=== PATIENT | female | born 1970 | race African-American/Black ===

== ENCOUNTER 2016-12-27 03:12 | Emergency (ER) | payer OTHER ==
[~2016-12-27] VITALS: Ht 167.6 cm; Wt 124.0 kg
[~2016-12-27 03:12] MED LIST: DIOV40TA PO; GUAI100S6 PO; KCL10C PO; ZITH250T PO
[2016-12-27 03:22] VITALS: BP 107/71; PULSE 75; RESP 14; TEMP 98.2; O2SAT 97
--- NOTE | 2016-12-27 04:01 | RADHPO ---
EXAM DATE/TIME: 12/27/2016 03:45 [place] COMPARISON: No previous studies available for comparison. INDICATIONS : Entire left knee pain. Patient felt "pop" after standing up. MEDICAL HISTORY : Arthritis. SURGICAL HISTORY : None. ENCOUNTER: Initial ACUITY: 1 day PAIN SCORE: 10/10 LOCATION: Left knee FINDINGS: Four view examination of the left knee demonstrates no evidence of fracture or dislocation. There is primary degenerative changes involving the knee joint with narrowing of the lateral joint compartment . No significant joint effusion. Soft tissues are unremarkable.. CONCLUSION: Primary degenerative changes with narrowing of the lateral joint compartment. Abiel Cornell MD on December 27, 2016 at 3:59 Board Certified Radiologist. This report was verified electronically.
[2016-12-27] MEDS ORDERED: CELE100C PO (04:23)
[2016-12-27] MEDS ORDERED: IBUPROFEN 800 MG TAB PO ONE (04:45)
--- NOTE | 2016-12-27 04:50 | PD ---
HPI Chief Complaint: Pain: Acute or Chronic Time Seen by Provider: 04:43 Travel History International Travel<30 days: No Contact w/Intl Traveler<30days: No Traveled to known affect area: No History of Present Illness HPI 46-year-old female presents to the emergency department for complaint of left knee pain. 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 Patient states she has bilaterally bad knees and has been followed by Dr. Bernard. Patient does not report any new lower leg or pedal edema. No calf pain. Pain is confined to the medial aspect of the left knee and posterior aspect of the left knee. Patient has had an MRI of the left knee and has marked degenerative changes no history of Gage cyst. No sending erythema. Patient was able to walk with a limping gait on the left leg yesterday. Patient took ibuprofen at 7 PM. Patient's had no medication for pain subsequently. Patient does not want any narcotic medication. Patient denies other injury or concern. No report of chest pain pleuritic pain or shortness of breath. Patient does not take any hormone replacement therapy. Patient does not smoke cigarettes. Patient is not diabetic. Patient rates pain 9/10 in intensity. PFSH Past Medical History Narrative Medical Arthritis tubal ligation no tobacco use; I see notes reviewed Diminished Hearing: No Hypertension: Yes Immunizations Current: Yes Tetanus Vaccination: > 5 Years Influenza Vaccination: Yes ?: Not Tubal Ligation: Yes Past Surgical History Cholecystectomy: Yes Gynecologic Surgery: Yes (UTERINE ABLATION) Social History Alcohol Use: No Tobacco Use: No Substance Use: No Allergies-Medications (Allergen,Severity, Reaction): Coded Allergies: Compazine (Verified Allergy, Severe, HALLUCINATIONS, 12/27/16) Darvocet-N 100 (Verified Allergy, Severe, NAUSEA, 12/27/16) Inapsine (Verified Allergy, Severe, HALLUCINATIONS, 12/27/16) Penicillin (Verified Allergy, Severe, RASH, 12/27/16) Phenergan (Verified Allergy, Severe, HALLUCINATIONS, 12/27/16) Valium (Verified Allergy, Severe, COMBATIVE, 12/27/16) Reported Meds & Prescriptions Reported Meds & Active Scripts Active Reported Celebrex (Celecoxib) 100 Mg Cap 100 Mg PO BID Diovan (Valsartan) 40 Mg Tab 25 Mg PO DAILY Review of Systems Except as stated in HPI: all other systems reviewed are Neg General / Constitutional: No: Fever, Chills HENT: No: Congestion Cardiovascular: No: Chest Pain or Discomfort Respiratory: No: Shortness of Breath Gastrointestinal: No: Abdominal Pain Genitourinary: No: Flank Pain Musculoskeletal: Positive: Myalgias, Arthralgias, Limited ROM (left knee), Pain , No: Edema Skin: No Rash Neurologic: No: Weakness (left knee) Psychiatric: No: Anxiety Hematologic/Lymphatic: No: Lymph Node Enlargement Physical Exam Narrative GENERAL: Well-developed well-nourished female in no acute distress no respiratory distress SKIN: Warm and dry. HEAD: Normocephalic. EYES: No scleral icterus. No injection or drainage. NECK: Supple, trachea midline. No JVD or lymphadenopathy. CARDIOVASCULAR: Regular rate and rhythm without murmurs, gallops, or rubs. RESPIRATORY: Breath sounds equal bilaterally. No accessory muscle use. GASTROINTESTINAL: Abdomen soft, non-tender, nondistended. MUSCULOSKELETAL: No cyanosis, or edema. Tenderness to palpation along the medial and posterior aspect of the left knee with no ballotable effusion; no ecchymosis no increased warmth no induration no erythema patient is able to perform them attempted knee flexion and incomplete extension secondary to medial inferior knee pain and posterior knee pain no calf pain swelling no ankle pain or pedal edema. No erythema no increased warmth no pallor or coolness of the limb. Dorsalis pedis pulse 2+ to palpation. BACK: Nontender without obvious deformity. No CVA tenderness. Data Data Last Documented VS Vital Signs Date Time Temp Pulse Resp B/P Pulse Ox O2 Delivery O2 Flow Rate FiO2 12/27/16 05:06 78 18 98 12/27/16 05:05 112/74 Room Air 12/27/16 03:22 98.2 Orders Knee, Complete (4vws) (12/27/16 ) ^ Knee Immobilizer (12/27/16 04:41) Splint Or Brace Apply/Monitor (12/27/16 04:41) Ibuprofen (Motrin) (12/27/16 04:45) Immobilizer Knee 20 Inch (12/27/16 ) MDM Medical Decision Making Medical Screen Exam Complete: Yes Emergency Medical Condition: Yes Medical Record Reviewed: Yes Interpretation(s) Last Impressions Knee X-Ray 12/27/16 0000 Signed Impressions: Service Date/Time: Tuesday, December 27, 2016 03:45 - CONCLUSION: Primary degenerative changes with narrowing of the lateral joint compartment. 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
[2016-12-27 05:05] VITALS: BP 112/74; PULSE 72; RESP 18; O2SAT 98
== END 2016-12-27 05:16 | disposition home or self-care (01) ==
LOC: PHED 03:12
DX: S89.92XA Unspecified injury of left lower leg, initial encounter (principal); I10 Essential (primary) hypertension; X50.9XXA Other and unspecified overexertion or strenuous movements or postures, initial encounter; Y93.89 Activity, other specified; Y92.149 Unspecified place in prison as the place of occurrence of the external cause; Y99.0 Civilian activity done for income or pay
CPT/HCPCS: 73564; 99283; L1830

== ENCOUNTER 2017-05-01 16:11 | Emergency (ER) | payer OTHER ==
[~2017-05-01] VITALS: Ht 167.6 cm; Wt 120.0 kg
[~2017-05-01 16:11] MED LIST changes: +CELE100C PO; -GUAI100S6 PO; -KCL10C PO; -ZITH250T PO
[2017-05-01 16:26] VITALS: BP 181/87; PULSE 93; RESP 21; TEMP 99.9; O2SAT 100
[2017-05-01] MEDS ORDERED: ONDANSETRON ODT 4 MG TAB PO ONE (16:30)
[2017-05-01] MEDS ORDERED: ZOFR4TAB3 SL (16:45)
--- NOTE | 2017-05-01 16:45 | PD ---
HPI Chief Complaint: GI Complaint Time Seen by Provider: 16:27 Travel History International Travel<30 days: No Contact w/Intl Traveler<30days: No Traveled to known affect area: No History of Present Illness HPI 46-year-old female complaining of nausea vomiting. Patient states that she is not having nausea vomiting since this morning. Patient denies any headache. Patient denies any visual change. Patient denies any neck pain. Patient denies any chest pain or shortness of breath. Patient denies abdominal pain. Patient denies any focal weakness or numbness of extremity. Patient has history hypertension and has been taking medications as directed. Patient states that her blood pressure has been elevated today. EMS was called. Patient was given Zofran 4 mg IM with relief of the nausea. PFSH Past Medical History Diminished Hearing: No Hypertension: Yes Immunizations Current: Yes ?: Not : 3 Para: 2 Tubal Ligation: Yes Past Surgical History Cholecystectomy: Yes Gynecologic Surgery: Yes (UTERINE ABLATION) Social History Alcohol Use: No Tobacco Use: No Substance Use: No Allergies-Medications (Allergen,Severity, Reaction): Coded Allergies: acetaminophen (Unverified Allergy, Severe, NAUSEA, 03/31/17) diazepam (Unverified Allergy, Severe, COMBATIVE, 03/31/17) droperidol (Unverified Allergy, Severe, HALLUCINATIONS, 03/31/17) penicillin G (Unverified Allergy, Severe, RASH, 03/31/17) prochlorperazine (Unverified Allergy, Severe, HALLUCINATIONS, 03/31/17) promethazine (Unverified Allergy, Severe, HALLUCINATIONS, 03/31/17) propoxyphene (Unverified Allergy, Severe, NAUSEA, 03/31/17) Reported Meds & Prescriptions Reported Meds & Active Scripts Active Reported Celebrex (Celecoxib) 100 Mg Cap 100 Mg PO BID Diovan (Valsartan) 40 Mg Tab 25 Mg PO DAILY Review of Systems General / Constitutional: No: Fever Eyes: No: Visual changes HENT: No: Headaches Cardiovascular: No: Chest Pain or Discomfort Respiratory: No: Shortness of Breath Gastrointestinal: Positive: Nausea, Vomiting, No: Abdominal Pain Genitourinary: No: Dysuria Musculoskeletal: No: Pain Skin: No Rash Neurologic: No: Weakness Psychiatric: No: Depression Endocrine: No: Polydipsia Hematologic/Lymphatic: No: Easy Bruising Physical Exam Narrative GENERAL: Well-nourished, well-developed patient. SKIN: Focused skin assessment warm/dry. HEAD: Normocephalic. EYES: No scleral icterus. No injection or drainage. Pupils 3 mm equal reactive. NECK: Supple, trachea midline. No JVD or lymphadenopathy. CARDIOVASCULAR: Regular rate and rhythm without murmurs, gallops, or rubs. RESPIRATORY: Breath sounds equal bilaterally. No accessory muscle use. GASTROINTESTINAL: Abdomen soft, non-tender, nondistended. MUSCULOSKELETAL: No cyanosis, or edema. BACK: Nontender without obvious deformity. No CVA tenderness. Neurologic exam normal. Data Data Last Documented VS Vital Signs Date Time Temp Pulse Resp B/P (MAP) Pulse Ox O2 Delivery O2 Flow Rate FiO2 05/01/17 16:26 99.9 93 21 181/87 (118) 100 Orders Orders Ondansetron Odt (Zofran Odt) (05/01/17 16:30) [facility] Medical Decision Making Medical Screen Exam Complete: Yes Emergency Medical Condition: Yes Differential Diagnosis Differential diagnosis including gastroenteritis, gastritis, PUD, pancreatitis, cholecystitis, dehydration, uncontrolled hypertension. Narrative Course 46-year-old female with nausea vomiting and history hypertension. Her blood pressure has been elevated today. Patient was given Zofran IM with good relief of the nausea vomiting. Zofran 4 mg ODT in the ED. Blood pressure under control in the ED. Diagnosis Primary Impression: Gastroenteritis Additional Impression: Uncontrolled hypertension Patient Instructions: General Instructions Med/Other Pt SpecificInfo: Prescription(s) given Scripts Ondansetron Odt (Zofran Odt) 4 Mg Tab 4 MG SL Q6HR Y for Nausea/Vomiting, #10 TAB 0 Refills Prov: Demarcus Draper MD 05/01/17 Disposition: 01 DISCHARGE HOME Condition: Stable Demarcus Draper MD May 01, 2017 16:45
[2017-05-01] MEDS ORDERED: SODIUM CHLOR 0.9% 1000 ML INJ 1,000 ML IV ONE ×2 (17:30→18:15)
[2017-05-01] MEDS ORDERED: DICYCLOMINE HCL 10 MG CAP PO ONE (18:15)
[2017-05-01] MEDS ORDERED: ONDANSETRON HCL 4 MG/2 ML VIAL IVP ONE (18:15)
--- NOTE | 2017-05-01 18:16 | PD ---
Physical Exam Date Seen by Provider: May 01, 2017 Data Data Last Documented VS Vital Signs Date Time Temp Pulse Resp B/P (MAP) Pulse Ox O2 Delivery O2 Flow Rate FiO2 05/01/17 16:26 99.9 93 21 181/87 (118) 100 Orders Orders Ondansetron Odt (Zofran Odt) (05/01/17 16:30) Complete Blood Count With Diff (05/01/17 17:22) Comprehensive Metabolic Panel (05/01/17 17:22) Lipase (05/01/17 17:22) Iv Access Insert/Monitor (05/01/17 17:22) Ecg Monitoring (05/01/17 17:22) Oximetry (05/01/17 17:22) Sodium Chlor 0.9% 1000 Ml Inj (Ns 1000 M (05/01/17 17:30) Ed Urine Pregnancytest Poc (05/01/17 18:12) Ondansetron Inj (Zofran Inj) (05/01/17 18:15) Dicyclomine (Bentyl) (05/01/17 18:15) Sodium Chlor 0.9% 1000 Ml Inj (Ns 1000 M (05/01/17 18:15) Labs Laboratory Tests Test 05/01/17 17:45 White Blood Count 9.3 TH/MM3 Red Blood Count 4.62 MIL/MM3 Hemoglobin 12.8 GM/DL Hematocrit 39.0 % Mean Corpuscular Volume 84.4 FL Mean Corpuscular Hemoglobin 27.7 PG Mean Corpuscular Hemoglobin Concent 32.9 % Red Cell Distribution Width 13.0 % Platelet Count 270 TH/MM3 Mean Platelet Volume 8.7 FL Neutrophils (%) (Auto) 82.3 % Lymphocytes (%) (Auto) 11.4 % Monocytes (%) (Auto) 5.8 % Eosinophils (%) (Auto) 0.2 % Basophils (%) (Auto) 0.3 % Neutrophils # (Auto) 7.7 TH/MM3 Lymphocytes # (Auto) 1.1 TH/MM3 Monocytes # (Auto) 0.5 TH/MM3 Eosinophils # (Auto) 0.0 TH/MM3 Basophils # (Auto) 0.0 TH/MM3 CBC Comment DIFF FINAL Differential Comment Blood Urea Nitrogen 14 MG/DL Creatinine 1.09 MG/DL Random Glucose 85 MG/DL Total Protein 7.5 GM/DL Albumin 3.6 GM/DL Calcium Level 8.5 MG/DL Alkaline Phosphatase 85 U/L Aspartate Amino Transf (AST/SGOT) 15 U/L Alanine Aminotransferase (ALT/SGPT) 15 U/L Total Bilirubin 0.3 MG/DL Sodium Level 136 MEQ/L Potassium Level 3.5 MEQ/L Chloride Level 101 MEQ/L Carbon Dioxide Level 27.7 MEQ/L Anion Gap 7 MEQ/L Estimat Glomerular Filtration Rate 66 ML/MIN Lipase 58 U/L [facility] Medical Record Reviewed: Yes Supervised Visit with NEFTALI: No Interpretation(s) Vital Signs Date Time Temp Pulse Resp B/P (MAP) Pulse Ox O2 Delivery O2 Flow Rate FiO2 05/01/17 16:26 99.9 93 21 181/87 (118) 100 Differential Diagnosis Differential includes gastritis, gastric enteritis, electrolyte abnormality Narrative Course Patient signed out to me by Dr. Draper at change of shift Patient is a 46-year-old female who presents to emergency room with complaints of nausea and vomiting which started this morning. She reports no sick contacts at home, she does work at the [employer] Reports no abdominal pain , no fevers or chills. Patient reports that she just feels nauseous and has not been able to keep any fluids down today. Patient denies any chest pain or shortness of breath, she denies any recent travels or trips. Patient received 4 mg of IM Zofran by EMS prior to arrival to the emergency room. She still feels nauseous at this time. Labwork pending, IV Zofran as well as IV fluids ordered. Abdomen is soft, nontender, nondistended, no peritoneal sign. 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 CBC & BMP Diagram 05/01/17 17:45 Total Protein 7.5, Albumin 3.6, Calcium Level 8.5, Alkaline Phosphatase 85, Aspartate Amino Transf (AST/SGOT) 15, Alanine Aminotransferase (ALT/SGPT) 15, Total Bilirubin 0.3 Patient reevaluated, patient feeling much better at this time. Please reports complete resolution of symptoms. I reviewed all labs and all studies with patient in detail. Signs and symptoms of when to return to the emergency room was reviewed patient in detail. She'll follow-up with her primary care doctor and will return to emergency room as needed. Diagnosis Primary Impression: Gastroenteritis Additional Impressions: Uncontrolled hypertension Dehydration Patient Instructions: General Instructions Additional Instruction: Please give a copy of patient's studies from today at discharge Please have your primary care doctor repeat your blood work Returns to emergency room as needed Return to the emergency room if symptoms worsen or progress Med/Other Pt SpecificInfo: Prescription(s) given Scripts Ondansetron (Zofran) 4 Mg Tab 4 MG PO Q6HR Y for NAUSEA OR VOMITING, #30 TAB 0 Refills Prov: Charisse Ibarhim DO 05/01/17 Disposition: 01 DISCHARGE HOME Condition: Stable Charisse Ibrahim DO May 01, 2017 18:16
[2017-05-01 18:43] LABS: AUTOMATED NEUTROPHIL # 7.7 TH/MM3 (1.8-7.7); BASOPHIL % 0.3 % (0.0-2.0); EOSINOPHIL % 0.2 % (0.0-4.0); HEMO FLAGS DIFF FINAL; LYMPH % 11.4 % (9.0-44.0); LYMPHOCYTE # 1.1 TH/MM3 (1.0-4.8); MEAN CELL VOLUME 84.4 FL (80.0-100.0); MEAN CORPUSCULAR HEMOGLOBIN 27.7 PG (27.0-34.0); MEAN CORPUSCULAR HGB CONC 32.9 % (32.0-36.0); MONO % 5.8 % (0.0-8.0); NEUT % 82.3 % (16.0-70.0); PLATELET COUNT 270 TH/MM3 (150-450); RED BLOOD COUNT 4.62 MIL/MM3 (4.00-5.30); WHITE BLOOD COUNT 9.3 TH/MM3 (4.0-11.0)
[2017-05-01 18:55] LABS: ANION GAP 7 MEQ/L (5-15); AST (GOT) 15 U/L (15-37); BICARBONATE 27.7 MEQ/L (21.0-32.0); BLOOD UREA NITROGEN 14 MG/DL (7-18); CHLORIDE 101 MEQ/L (98-107); GLOMERULAR FILTRATION RATE 66 ML/MIN (>89); POTASSIUM 3.5 MEQ/L (3.5-5.1); SODIUM (NA) 136 MEQ/L (136-145)
[2017-05-01 18:57] LABS: ALT (GPT) 15 U/L (10-53)
[2017-05-01 18:58] LABS: ALKALINE PHOSPHATASE 85 U/L (45-117); TOTAL BILIRUBIN ADULT 0.3 MG/DL (0.2-1.0)
[2017-05-01] MEDS ORDERED: ZOFR4TAB PO (19:39)
[2017-05-01 19:58] VITALS: BP 149/71; PULSE 92; RESP 16; TEMP 100; O2SAT 97
[2017-05-01] MEDS ORDERED: IBUPROFEN 600 MG TAB PO ONE (20:15)
== END 2017-05-01 21:57 | disposition home or self-care (01) ==
LOC: NEPD 16:11
DX: K52.9 Noninfective gastroenteritis and colitis, unspecified (principal); I10 Essential (primary) hypertension; E86.0 Dehydration
CPT/HCPCS: 80053; 83690; 85025; 96361; 96374; 99284; J2405; J7030

== ENCOUNTER 2017-11-26 20:37 | Emergency (ER) | payer OTHER ==
[2017-11-27] MEDS ORDERED: POTA8CAP PO (13:37)
[2017-11-27] MEDS ORDERED: VERA40TA PO (13:37)
[2017-11-27] MEDS ORDERED: CELE50CA PO (13:37)
[2017-11-27] MEDS ORDERED: DIOV40TA PO (13:37)
[2017-11-27] MEDS ORDERED: KETO10 PO (14:12)
[2017-11-27] MEDS ORDERED: ROBA750T PO (14:12)
== END 2017-11-26 21:10 | disposition left against medical advice (07) ==
LOC: PHED 20:37
DX: Z53.21 Procedure and treatment not carried out due to patient leaving prior to being seen by health care provider (principal); R10.9 Unspecified abdominal pain
CPT/HCPCS: 99281

== ENCOUNTER 2017-11-27 13:21 | Emergency (ER) | payer OTHER ==
[~2017-11-27] VITALS: Ht 167.6 cm; Wt 120.7 kg
[2017-11-27 13:23] VITALS: BP 179/89; PULSE 77; RESP 18; TEMP 98.6; O2SAT 97
[2017-11-27] MEDS ORDERED: VERA40TA PO (13:37)
[2017-11-27] MEDS ORDERED: POTA8CAP PO (13:37)
[2017-11-27] MEDS ORDERED: CELE50CA PO (13:37)
[2017-11-27] MEDS ORDERED: DIOV40TA PO (13:37)
[2017-11-27] MEDS ORDERED: KETOROLAC TROMETHAMINE 60 MG/2 ML (IM) VIAL IM ONE (13:45)
--- NOTE | 2017-11-27 13:45 | PD ---
HPI Chief Complaint: Back/ Neck Pain or Injury Time Seen by Provider: 13:36 Travel History International Travel<30 days: No Contact w/Intl Traveler<30days: No Traveled to known affect area: No History of Present Illness HPI 47-year-old female with right low back pain 3 days. Cannot recall specific injury. Pain is localized to the right low back and nonradiating. No fevers or chills. No urinary frequency, dysuria, urgency. No paresthesia or weakness of the extremities. Symptom severity is moderate. Aggravated by movement and slightly relieved with rest. PFSH Past Medical History Arthritis: Yes Diminished Hearing: No Hypertension: Yes Immunizations Current: Yes Influenza Vaccination: No ?: Not LMP: LAST MONTH : 3 Para: 2 Tubal Ligation: Yes Past Surgical History Cholecystectomy: Yes Gynecologic Surgery: Yes (UTERINE ABLATION) Social History Alcohol Use: No Tobacco Use: No Substance Use: No Allergies-Medications (Allergen,Severity, Reaction): Coded Allergies: acetaminophen (Unverified Allergy, Severe, NAUSEA, 11/27/17) diazepam (Unverified Allergy, Severe, COMBATIVE, 11/27/17) droperidol (Unverified Allergy, Severe, HALLUCINATIONS, 11/27/17) penicillin G (Unverified Allergy, Severe, RASH, 11/27/17) prochlorperazine (Unverified Allergy, Severe, HALLUCINATIONS, 11/27/17) promethazine (Unverified Allergy, Severe, HALLUCINATIONS, 11/27/17) propoxyphene (Unverified Allergy, Severe, NAUSEA, 11/27/17) Reported Meds & Prescriptions Reported Meds & Active Scripts Active Robaxin (Methocarbamol) 750 Mg Tab 750 Mg PO QID Ketorolac (Ketorolac Tromethamine) 10 Mg Tab 10 Mg PO Q6HR PRN 5 Days Reported Celebrex (Celecoxib) 50 Mg Cap 50 Mg PO BID Potassium Chloride ER (Potassium Chloride) 8 Meq Cap 8 Meq PO BID Diovan (Valsartan) 40 Mg Tab 20 Mg PO BID Verapamil (Verapamil HCl) 40 Mg Tab 40 Mg PO BID Review of Systems Except as stated in HPI: all other systems reviewed are Neg General / Constitutional: No: Fever Eyes: No: Visual changes HENT: No: Headaches Cardiovascular: No: Chest Pain or Discomfort Respiratory: No: Shortness of Breath Gastrointestinal: No: Abdominal Pain Genitourinary: No: Dysuria Physical Exam Narrative GENERAL: Alert and well-appearing 47-year-old female. SKIN: Warm and dry. HEAD: Atraumatic. Normocephalic. EYES: No injection or drainage. NECK: Supple CARDIOVASCULAR: Regular rate and rhythm. RESPIRATORY: No accessory muscle use. Clear to auscultation. Breath sounds equal bilaterally. GASTROINTESTINAL: Abdomen soft, non-tender, nondistended. MUSCULOSKELETAL: Extremities without clubbing, cyanosis, or edema. No obvious deformities. BACK: No rash. No point tenderness on palpation of the spine. Mild +TTP right lumbar paravertebral musculature and right flank region. NEUROLOGICAL: Awake and alert. Motor grossly within normal limits. Five out of 5 muscle strength in the arms and legs. Normal sensation in extremities. PSYCHIATRIC: Appropriate mood and affect; insight and judgment normal. Data Data Last Documented VS Vital Signs Date Time Temp Pulse Resp B/P (MAP) Pulse Ox O2 Delivery O2 Flow Rate FiO2 11/27/17 13:23 98.6 77 18 179/89 (119) 97 Orders Orders Urinalysis - C+S If Indicated (11/27/17 13:40) Ketorolac Inj (Toradol Inj) (11/27/17 13:45) Ed Discharge Order (11/27/17 14:14) Labs Laboratory Tests Test 11/27/17 13:50 Urine Collection Type CLEAN CATCH Urine Color YELLOW Urine Turbidity SL CLOUDY Urine pH 6.0 Urine Specific [place] 1.025 Urine Protein TRACE mg/dL Urine Glucose (UA) NEG mg/dL Urine Ketones TRACE mg/dL Urine Occult Blood NEG Urine Nitrite NEG Urine Bilirubin NEG Urine Urobilinogen 0.2 MG/DL Urine Leukocyte Esterase NEG Urine WBC 0-2 /hpf Urine Squamous Epithelial Cells > 8 /hpf Urine Amorphous Sediment MOD Urine Bacteria FEW /hpf Microscopic Urinalysis Comment CULT NOT INDICATED Urine Collection Time 1350 MDM Medical Decision Making Medical Screen Exam Complete: Yes Emergency Medical Condition: Yes Differential Diagnosis Lumbar strain, pyelonephritis, nephrolithiasis Narrative Course 47-year-old female here with right low back pain 3 days. She has a normal neurologic exam. No complaints of urinary difficulty. UA no WBCs or RBCs to indicate infection or kidney stone. Patient reports symptom improvement after Toradol. Diagnosis Primary Impression: Lumbar strain Qualified Codes: S39.012A - Strain of muscle, fascia and tendon of lower back , initial encounter Referrals: Primary Care Physician Departure Forms: Tests/Procedures, Work Release Enter return to work date: Nov 30, 2017 Additional Instructions: Medication as directed. Follow-up the primary doctor. Return if he develop new or worsening symptoms. Scripts Methocarbamol (Robaxin) 750 Mg Tab 750 MG PO QID for Muscle Spasm, #12 TAB 0 Refills Prov: Sunni Schwartz 11/27/17 Ketorolac (Ketorolac) 10 Mg Tab 10 MG PO Q6HR Y for PAIN for 5 Days, TAB 0 Refills Prov: Sunni Schwartz 11/27/17 Disposition: 01 DISCHARGE HOME Condition: Stable Sunni Schwartz Nov 27, 2017 13:45
[2017-11-27 14:01] LABS: BILIRUBIN, URINE NEG (NEG); BLOOD, URINE NEG (NEG); GLUCOSE,URINE NEG (NEG); KETONE, URINE TRACE mg/dL (NEG); NITRITE,URINE NEG (NEG); URINE COLOR YELLOW (YELLW/STRAW); URINE LEUKOCYTE ESTERASE NEG (NEG)
[2017-11-27 14:05] LABS: BACTERIA, URINE FEW /hpf; WBC, URINE 0-2 /hpf (0-5)
[2017-11-27 14:06] LABS: AMORPHOUS SEDIMENT, URINE MOD; SQUAMOUS EPITHELIAL CELL URINE > 8 /hpf (0-5)
[2017-11-27] MEDS ORDERED: ROBA750T PO (14:12)
[2017-11-27] MEDS ORDERED: KETO10 PO (14:12)
== END 2017-11-27 14:27 | disposition home or self-care (01) ==
LOC: PHEFT 13:21
DX: S39.012A Strain of muscle, fascia and tendon of lower back, initial encounter (principal); I10 Essential (primary) hypertension; M19.90 Unspecified osteoarthritis, unspecified site; Z88.0 Allergy status to penicillin; Z88.8 Allergy status to other drugs, medicaments and biological substances; Z79.899 Other long term (current) drug therapy
CPT/HCPCS: 81001; 96372; 99283; J1885

== ENCOUNTER 2018-02-01 11:12 | Day surgery (SDC) | payer OTHER ==
[~2018-02-01] VITALS: Ht 167.6 cm; Wt 120.0 kg
[~2018-02-01 11:12] MED LIST changes: -CELE100C PO; +CELE50CA PO; +KETO10 PO; +POTA8CAP PO; +ROBA750T PO; +VERA40TA PO
[2018-02-01] MEDS ORDERED: IOHEXOL 350 MG/ML 100 ML BTL (for Cath Lab) OTHER ONE (11:13)
[2018-02-01] MEDS ORDERED: IOHEXOL 350 MG/ML 50 ML BTL (for Cath Lab) OTHER ONE (11:13)
[2018-02-01] MEDS ORDERED: NS 1000P @30 MLS/HR (KVO) IV SCH (11:45)
[2018-02-01 12:06] VITALS: BP 145/76; PULSE 57; RESP 18; TEMP 97.8; O2SAT 99
[2018-02-01] MEDS ORDERED: CHLOR50 PO (12:16)
[2018-02-01] MEDS ORDERED: SUVO1TAB2 PO (12:16)
[2018-02-01] MEDS ORDERED: METO25TA3 PO (12:16)
[2018-02-01 12:25] LABS: AUTOMATED NEUTROPHIL # 5.4 TH/MM3 (1.8-7.7); BASOPHIL # 0.1 TH/MM3 (0-0.2); BASOPHIL % 0.6 % (0.0-2.0); EOSINOPHIL # 0.3 TH/MM3 (0-0.4); HEMATOCRIT 37.6 % (35.0-46.0); HEMOGLOBIN 12.4 GM/DL (11.6-15.3); LYMPH % 26.7 % (9.0-44.0); LYMPHOCYTE # 2.3 TH/MM3 (1.0-4.8); MEAN CELL VOLUME 83.2 FL (80.0-100.0); MEAN CORPUSCULAR HEMOGLOBIN 27.4 PG (27.0-34.0); MEAN CORPUSCULAR HGB CONC 32.9 % (32.0-36.0); MEAN PLATELET VOLUME 8.5 FL (7.0-11.0); MONO % 6.8 % (0.0-8.0); MONOCYTE # 0.6 TH/MM3 (0-0.9); NEUT % 62.9 % (16.0-70.0); PLATELET COUNT 281 TH/MM3 (150-450); RED BLOOD COUNT 4.52 MIL/MM3 (4.00-5.30); WHITE BLOOD COUNT 8.6 TH/MM3 (4.0-11.0)
[2018-02-01 12:38] LABS: PROTHROMBIN TIME - PATIENT 10.3 SEC (9.8-11.6)
[2018-02-01 12:40] LABS: BICARBONATE 26.4 MEQ/L (21.0-32.0); CALCIUM 8.5 MG/DL (8.5-10.1); CREATININE 0.87 MG/DL (0.50-1.00)
[2018-02-01] MEDS ORDERED: HEPARIN-NS/PF INJ 1,000 ML ONE (15:39)
[2018-02-01] MEDS ORDERED: MIDAZOLAM HCL 5 MG/5 ML VIAL ONE (15:39)
[2018-02-01] MEDS ORDERED: NITROGLYCERIN INJ 5 ML ONE (16:20)
--- NOTE | 2018-02-01 16:47 | CATHPROC ---
[employer] HIS Report Study Information Study Number Admission Scheduled Start Study Start [id number] Feb 01 2018 11:12AM 02/01/2018 Feb 01 2018 3:31PM [place] Service Cardiac Catheterization Admit Source Facility Department Other [facility] - Platform Builder Physician and Clinical Staff Initial Chaya Kidd Women'S Activities Adviser Jose Viveros RN Women'S Activities Adviser [place] AGUILERA, Jus RecordSandrine Thompson RCIS TECH2 Scrub Severo Ro RCIS(BS) Procedures Performed Procedure Location (Site) Vessel Name Angiogram LV LV Ventricle Coronary Angiograms LCA Left Coronary Coronary Angiograms RCA Right Coronary Equipment Time 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 Description Size Mfg Part Number Used/Scraped TRANSDUCER, TRUWAVE [id number] 15:33 Behalf * Used W/STOCKCOCK *[id number] 16:35 [employer] VASCADE, FR5 CLOSURE SYSTEM FR 5 Used *[id number] [id number] *[id number] [id number] *[id number] [id number] *[id number] 15:33 [place] BLANKET,WARM AIR CCL * Used *[id number] 15:33 [place] PACK, CCL CUSTOM * Used *[id number] 15:33 [employer] PACER PEN, SKIN DUAL W/ RULER * Used *[id number] 15:33 [employer] WIRE, 3MMJ .035 180CM 180CM Used *[id number] PROBE COVER, STERILE [id number] 15:33 [employer] MEDICAL * Used ULTRASOUND W/ GEL *[id number] 15:33 NAMIC MANIFOLD, 4 PORT * Used *[id number] 15:33 NAMIC TUBING, HIGH PRESSURE 48" 48" Used *[id number] 15:33 [employer] OMNIPAQUE, 350 MG, 150ML 150ML [id number] Used 16:22 [place]ED OMNIPAQUE, 350 MG, 50ML 50ML [id number] Used [id number] 15:33 [employer] MEDICAL SHEATH, FR5 TERUMO (10CM) FR 5 Used *[id number] History: Current Medications Medication Dosage/Unit Route Frequency Last Date/Time Taken LASIX K-Dur FISH OIL Celebrex LOPRESSOR DIOVAN History: Allergies Allergy Reaction Compazine HALLUCINATIONS Darvocet-N 100 NAUSEA Inapsine HALLUCINATIONS Penicillin RASH Phenergan HALLUCINATIONS Valium COMBATIVE diazepam COMBATIVE prochlorperazine HALLUCINATIONS droperidol HALLUCINATIONS propoxyphene NAUSEA acetaminophen NAUSEA promethazine HALLUCINATIONS penicillin G RASH History: Risk Factors Family History of Hypertension Dyslipidemia Previous NH Previous Heart Failure Premature CAD Yes Yes No No No Prior Valve Prior PCI Prior CABG Surgery No No No Cerebrovascular Peripheral Artery Chronic Lung On Dialysis Diabetes Disease Disease Disease No No No No No History: Symptoms/Diagnosis Selection Items Chest pain SOB History: Stress Tests Stress or Imaging Studies Performed Yes Standard Exercise Stress Test No Stress Echo No Stress Test SPECT Stress Test SPECT Result Stress Test SPECT Ischemia Risk/Extent Yes Positive Intermediate Cardiac CTA Coronary Calcium Score No No History: Other Current Smoker No Labs Hgb (g/dl) Hct (%) RBC (MIL/MM3) WBC (l/cumm) Platelets (thousands) 11.60-17.00 35.00-51.00 4.00-5.90 4.00-11.00 150.00-450.00 12.4 37.6 4.5 8.6 281 Glucose (mg/dl) BUN (mg/dl) Creatinine (mg/dl) BUN:Creatinine (1:x) 74.00-106.00 7.00-18.00 0.50-1.30 10.00-20.00 83 9 0.8 11.3 Na (meq/l) K (meq/l) Cl (meq/l) CO2 (mmol/L) Ca (mg/dl) 136.00-145.00 3.50-5.10 98.00-107.00 21.00-32.00 8.50-10.10 142 4 109 26.4 8.5 PT (sec) PTT (sec) INR (PTT:PT) 9.80-11.60 24.30-30.10 0.90-1.10 10.3 30.9 1 CPK-MB (ng/ML) 0.50-3.60 Not Drawn Medication Medication Total Dose (Bolus/Oral) Medication Total Dosage/Unit 1% XYLOCAINE 25 mL FENTANYL 100 mcg VERSED 5 mg Medications (Bolus/Oral) Medication Time Given Dosage/Unit Administered By Reason VERSED 02/01/2018 3:55:52 PM 2 mg Jose Viveros 2 mg VERSED given in lab by Jose Viveros RN in Right Antecubital via Peripheral IV. Ordered by Chaya Taylor. FENTANYL 02/01/2018 3:56:40 PM 50 mcg Felice, Jose 50 mcg FENTANYL given in lab by Jose Viveros RN in Right Antecubital via Peripheral IV. Ordered by Chaya Mcmahon. VERSED 02/01/2018 4:00:06 PM 1 mg Felice, Jose 1 mg VERSED given in lab by Jose Viveros RN in Right Antecubital via Peripheral IV. Ordered by Chaya Taylor. VERSED 02/01/2018 4:02:40 PM 1 mg Felice, Jose 1 mg VERSED given in lab by Jose Viveros RN in Right Antecubital via Peripheral IV. Ordered by Chaya Taylor. FENTANYL 02/01/2018 4:06:10 PM 25 mcg Felice, Jose 25 mcg FENTANYL given in lab by Jose Viveros RN in Right Antecubital via Peripheral IV. Ordered by Chaya Mcmahon. FENTANYL 02/01/2018 4:14:19 PM 25 mcg Felice, Jose 25 mcg FENTANYL given in lab by Jose Viveros RN in Right Antecubital via Peripheral IV. Ordered by Chaya Mcmahon. VERSED 02/01/2018 4:15:43 PM 1 mg Felice, Jose 1 mg VERSED given in lab by Jose Viveros RN in Right Antecubital via Peripheral IV. Ordered by Chaya Taylor. 1% XYLOCAINE 02/01/2018 4:19:18 PM 25 mL Chaya Perez 25 mL 1% XYLOCAINE given in lab by Chaya Perez in Right Groin via Subcutaneous. Ordered by Chaya Valero. Medication (Drip) Medication Time Given Dosage/Unit Concentration/Unit Diluent (ml) Solutio n IV Solutions 02/01/2018 3:43:57 PM 0 mL (IV) 500 NaCl .9 Patient arrived on IV Solutions in Right Antecubital via Peripheral IV. Pump/Drip Flow = 20 ml/hr usi ng NaCl .9. Initial Case Assessment Cardiovascular HR Rhythm NIBP Chest Pain 92 sr 158/93 0 Circulatory - Right Pulses Dorsalis Pedis Femoral 2 2 Scale (0,1,2,3,4,d) Circulatory - Left Pulses Dorsalis Pedis Femoral 2 2 Scale (0,1,2,3,4,d) Neurological State Oriented to time-place- Alert Moves all extremities person Respiration - General Respiration Rate SpO2 (%) (B/min) 10 100 Final Case Assessment Cardiovascular HR Rhythm NIBP Chest Pain 83 sr 139/81 0 Circulatory - Right Pulses Dorsalis Pedis Femoral 2 2 Scale (0,1,2,3,4,d) Circulatory - Left Pulses Dorsalis Pedis Femoral 2 2 Scale (0,1,2,3,4,d) Neurological State Oriented to time-place- Alert Moves all extremities person Respiration - General Respiration Rate SpO2 (%) (B/min) 11 96 Chronological Log Time Study Chronological Log 15:39:15 Patient arrived via Bed. 15:39:16 Patient Name, D.O.B, / Armband Verified By R.N. 15:39:18 Consent signed by the physician and the patient and verified by the Platform Builder staff. 15:39:19 Pre-op and post- op instructions given; patient acknowledges understanding of instructions. 15:43:00 Verbal Stimulation=2 Physical Stimulation=2 Airway=2 Respiration=2 TOTAL=8. (0=absent, 1=li mited, 2=present) 15:43:24 Presedation assessment performed by Platform Builder RN. 15:43:26 Patient has been NPO for More than 6Hrs. 15:43:27 Skin Breakdown-none per patient 15:43:46 Libby Prominences Protected 15:43:48 A # 20 IV was noted in the Antecubital (right). Grade = 0 15:43:57 Patient arrived on IV Solutions in Right Antecubital via Peripheral IV. Pump/Drip Flow = 20 ml/hr using NaCl .9. 15:44:15 History and physical on the chart or being dictated. Assessment: Initial Case, HR=92 BPM, Rhythm=sr, VQFV=225/93 mmhg, Chest Pain=0 Right Pulses: Mendez Ped=2, Femoral=2 15:44:17 Left Pulses: Mendez Ped=2, Femoral=2 Neurological: State=Alert, Ox3, [place] Respiration: Resp=10 B/min, TvU4=148 % Vitals capture started with the following parameters, Patient=Adult, Interval=5 min, Initial Pr isssxr=577 mmHg, 15:45:53 Deflation Rate=5 mmHg, Cuff placed on Left Arm 15:46:30 HR=97 bpm, LGCQ=957/93 mmhg, SpO2=99.0 % 15:50:51 Bilateral groins prepped with 2% chlorhexidine, and draped after a 3 minute waiting time. 15:51:23 Reference ECG taken 15:52:10 HR=92 bpm, ZUOP=816/112 mmhg, SpO2=98.0 %, Resp=28 B/min 15:55:52 2 mg VERSED given in lab by Jose Viveros RN in Right Antecubital via Peripheral IV. Ordere d by Chaya Perez. 15:56:37 HR=98 bpm, JCOG=727/90 mmhg, SpO2=99.0 %, Resp=15 B/min 15:56:40 50 mcg FENTANYL given in lab by Jose Viveros RN in Right Antecubital via Peripheral IV. Or dered by Chaya Perez. 15:56:47 Pressure channel 1 zeroed. 15:57:46 MD paged 16:00:06 1 mg VERSED given in lab by Jose Viveros RN in Right Antecubital via Peripheral IV. Ordere d by Chaya Perez. 16:01:38 HR=92 bpm, OKPJ=464/82 mmhg, SpO2=96.0 %, Resp=23 B/min 16:02:40 1 mg VERSED given in lab by Jose Viveros RN in Right Antecubital via Peripheral IV. Ordere d by Chaya Perez. 16:06:10 25 mcg FENTANYL given in lab by Jose Viveros RN in Right Antecubital via Peripheral IV. Or dered by Chaya Perez. 16:06:35 HR=87 bpm, EAMU=120/81 mmhg, SpO2=91.0 %, Resp=23 B/min 16:11:36 HR=90 bpm, SKVC=696/84 mmhg, SpO2=90.0 %, Resp=25 B/min 16:14:16 MD arrived. 16:14:19 25 mcg FENTANYL given in lab by Jose Viveros RN in Right Antecubital via Peripheral IV. Or dered by Chaya Perez. 16:15:43 1 mg VERSED given in lab by Jose Viveros RN in Right Antecubital via Peripheral IV. Ordere d by Chaya Perez. 16:16:31 HR=89 bpm, PCPP=964/88 mmhg, Resp=22 B/min Time Out. Correct patient, correct procedure, correct physician, labs, allergies, and equipment verified with culture media laboratory assistant 16:18:44 team present. Fire risk assesment completed (see hard stop sheet for coding). Time Out Conc urred by MD and individual staff in procedure. 16:19:17 Case Start 16:19:18 25 mL 1% XYLOCAINE given in lab by Chaya Perez in Right Groin via Subcutaneous. Ordered by Chaya Perez. 16:21:30 Access site was Right Femoral Artery. 16:21:34 HR=94 bpm, WLOX=376/87 mmhg, SpO2=93.0 %, Resp=22 B/min 16:21:38 A SHEATH, FR5 TERUMO (10CM) FR 5 was advanced into the Fem Art (right) using the [place] us technique. A PIGTAIL ANG. INFINITI CATHETER FR 5 was advanced over a wire. OMNIPAQUE, 350 MG, 50ML 50ML wa s used for 16:21:46 injections. Recorded Pressure: LV, HR=91, Condition=Condition 1 16:22:32 (Left Ventricle) LV 172/7/15 16:23:45 The LV was injected at 13 cc/sec for a total of 39. OMNIPAQUE, 350 MG, 50ML 50ML used. Recorded Pressure: LV, Ao, HR=90, Condition=Condition 1 16:24:52 (Left Ventricle) LV 142/7/18, (Aorta) Ao 146/76/109 16:25:25 Catheter was removed A JL 4.0 INFINITI CATHETER FR 5 was advanced over a wire. OMNIPAQUE, 350 MG, 150ML 150ML was us ed for 16:25:26 injections. 16:26:24 The LCA was injected and visualized at various angles. OMNIPAQUE, 350 MG, 150ML 150ML used . 16:26:37 HR=90 bpm, YAMH=950/82 mmhg, SpO2=93.0 %, Resp=16 B/min 16:27:35 Catheter was removed A AR MOD INFINITI CATHETER FR 5 was advanced over a wire. OMNIPAQUE, 350 MG, 150ML 150ML was us ed for 16:27:36 injections. 16:28:55 The RCA was injected and visualized at various angles. OMNIPAQUE, 350 MG, 150ML 150ML used . 16:29:20 Catheter was removed 16:29:39 An injection in the Fem Art (right) was made through the SHEATH, FR5 TERUMO (10CM) FR 5. 16:29:53 Case End (Physician broke scrub) 16:31:36 HR=90 bpm, SUWF=998/82 mmhg, SpO2=94.0 %, Resp=12 B/min 16:34:33 Site prepped with betadine for closure device. 16:35:08 VASCADE, FR5 CLOSURE SYSTEM FR 5 placement in the Fem Art (right) 16:36:37 HR=83 bpm, GYGN=947/81 mmhg, SpO2=96.0 %, Resp=11 B/min 16:37:48 Vitals capture stopped. 16:37:55 Sterile dressing applied to site 16:37:56 No case complications noted. 16:37:57 Cine recording checked. 16:37:59 Bedside Report will be given. Assessment: Final Case, HR=83 BPM, Rhythm=sr, NZVH=267/81 mmhg, Chest Pain=0 Right Pulses: Mendez Ped=2, Femoral=2 16:38:01 Left Pulses: Mendez Ped=2, Femoral=2 Neurological: State=Alert, Ox3, [place] Respiration: Resp=11 B/min, SpO2=96 % 16:43:00 Patient moved to stretcher 16:43:57 Patient transported to DOCU. End Study - Contrast Media Used In Study Contrast Total Opened (mL) Total Used (mL) Total Wasted (mL) Omnipaque 125 125 0 End Study - Maximum Contrast Load Max Contrast Load (mL) 750.0 End Study - Radiation Exposure Fluoro Time (minutes) 1.2 End Study - Sheaths Sheaths Pulled By Sheath Hold Time (min) Severo Ro End Study - Patient Disposition Complications Transferred To Interventional Outcome No Telemetry Bed No attempt made
--- NOTE | 2018-02-02 10:15 | MA ---
cc: Chaya Perez MD DATE: 02/01/2018 INDICATION: Angina pectoris, class 2 angina, intermediate probability nuclear myocardial perfusion study. PROCEDURE PERFORMED: 1. Retrograde left heart catheterization with left ventriculography and selective coronary angiography. 2. Moderate sedation. ACCESS SITE: Right femoral artery. EQUIPMENT USED: 5-Beninese pigtail catheter, 5-Beninese JL4 and AR modified coronary artery catheters. MEDICATIONS: Versed IV, fentanyl IV, contrast Omnipaque 125 mL COMPLICATIONS: None. ESTIMATED BLOOD LOSS: Less than 10 mL METHOD OF HEMOSTASIS: VASCADE closure. RESULTS: A. HEMODYNAMICS: Heart rate 80 beats per minute. Left ventricular end diastolic pressure 7 mmHg, left ventricle 125/7, aorta 125/76/109. B. LEFT VENTRICULOGRAPHY: Left ventricular ejection fraction 60%. Wall motion normal. No mitral regurgitation. C. CORONARY ANGIOGRAPHY: Left main coronary artery patent, left anterior descending artery patent. D1 patent. Left circumflex artery patent. OM1 patent. Left PDA patent. Right coronary artery is codominant vessel, which is patent. Right PDA is patent. DIAGNOSES: 1. Patent coronary arteries. 2. Preserved left ventricular systolic function. DISPOSITION: Ms. Garcia can be reassured about her cardiac status. Her study revealed widely patent coronary arteries and preserved left ventricular systolic function. She will be discharged home later today. I will see her back for followup in our office after discharge. MD ALEKSANDAR Salvador/JEN , 04:40 PM , 05:53 PM HANANE
--- NOTE | 2018-02-02 17:06 | EKG ---
Date Performed: 02/01/2018 Time Performed: 12:42:22 PTAGE: 47 years EKG: Sinus rhythm . Normal ECG PREVIOUS TRACING : 04/23/2010 01.39 Since the previous tracing, no significant change noted DOCTOR: Pasquale Buckley Interpretating Date/Time 02/02/2018 17:02:51
== END 2018-02-01 19:30 | disposition home or self-care (01) ==
LOC: HDIC 11:12 → HDOC 11:12
PROVIDERS: ATTEND Internal Medicine Interventional Cardiology
DX: I20.9 Angina pectoris, unspecified (principal); R94.39 Abnormal result of other cardiovascular function study; I10 Essential (primary) hypertension; E78.5 Hyperlipidemia, unspecified
CPT/HCPCS: 80048; 84702; 85025; 85610; 85730; 93005; 93458; 99152; 99153; C1760; C1769; C1893; G0269; J1644; J2250; J3010; Q9967